=== PATIENT | male | born 1990 | race African-American/Black ===

== ENCOUNTER 2019-03-27 10:01 | Emergency (ER) | payer MEDICAID ==
[~2019-03-27] VITALS: Ht 180.3 cm; Wt 88.5 kg
[2019-03-27 10:10] VITALS: BP 128/65
== END 2019-03-27 11:03 | disposition home or self-care (01) ==
LOC: ER 10:01
DX: J03.90 Acute tonsillitis, unspecified (principal)

== ENCOUNTER 2020-06-22 10:29 | Emergency (ER) | payer MEDICAID ==
[~2020-06-22] VITALS: Ht 180.3 cm; Wt 85.3 kg
[2020-06-22 10:51] VITALS: BP 131/79
== END 2020-06-22 11:59 | disposition home or self-care (01) ==
LOC: ER 10:29
DX: J02.9 Acute pharyngitis, unspecified (principal); Z20.828 Contact with and (suspected) exposure to other viral communicable diseases
CPT/HCPCS: 36415; 71045; 87426

== ENCOUNTER 2020-08-27 15:06 | Emergency (ER) | payer MEDICAID ==
[~2020-08-27] VITALS: Ht 182.9 cm; Wt 74.8 kg
[2020-08-27 15:27] VITALS: BP 125/74
== END 2020-08-27 16:17 | disposition home or self-care (01) ==
LOC: EDBD 15:06 → ER 15:06
DX: S63.91XA Sprain of unspecified part of right wrist and hand, initial encounter (principal); S00.83XA Contusion of other part of head, initial encounter; V43.52XA Car driver injured in collision with other type car in traffic accident, initial encounter; Y93.89 Activity, other specified; Y92.488 Other paved roadways as the place of occurrence of the external cause; Y99.8 Other external cause status
CPT/HCPCS: 73130

== ENCOUNTER 2021-08-01 10:00 | Emergency (ER) | payer OTHER ==
[~2021-08-01] VITALS: Ht 180.3 cm; Wt 88.0 kg
[2021-08-01 10:29] VITALS: BP 121/70
[2021-08-01] MEDS ORDERED: AMOX-277 PO (12:37)
[2021-08-01] MEDS ORDERED: ACET-1158 PO (12:37)
[2021-08-01] MEDS ORDERED: ALBUAER3 IN (12:37)
== END 2021-08-01 13:02 | disposition home or self-care (01) ==
LOC: ER 10:00
DX: U07.1 COVID-19 (principal); J06.9 Acute upper respiratory infection, unspecified; K52.9 Noninfective gastroenteritis and colitis, unspecified
CPT/HCPCS: 36415; 71045; 87426; 87804